=== PATIENT | male | born 1965 | race Caucasian/White ===

== ENCOUNTER → 2020-12-27 | Outpatient (CLI) | payer MEDICARE ==
--- NOTE | 2020-12-27 16:36 | RAD ---
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 COMPARISON: None available. FINDINGS: There is increased signal within the anterior cruciate ligament which may be seen with a gr nikolay 1 ligament sprain. Otherwise, no tear of this ligament is seen. The posterior cruciate ligament i s intact. The quadriceps and patellar tendons are intact. There is a small inferior articular surface tear of the anterior horn of the lateral meniscus seen on series 6 and image 24. On series 8 and alfredo ge 9, there is a small inferior articular surface tear of the inner one third of the body of the late ral meniscus. There is a horizontal cleavage tear of the anterior horn and body of the lateral menisc us with associated parameniscal cyst which measures 18 mm in greatest dimension. This is best seen on series 8 and image 12. The medial meniscus is intact. The medial collateral ligament is intact and n o meniscocapsular separation is seen. Paramagnetic susceptibility artifact is seen medially. This cou ld be related to previous surgery or trauma. The lateral collateral ligament complex and iliotibial b and and popliteus tendon are intact. No posterior lateral corner injury is seen. No bone marrow edema or marrow infiltrative process or fracture is seen. There is moderate chondromalacia of the weightbe aring portion of the articular cartilage of the medial femoral condyle. There is minimal degenerative spurring of the lateral tibiofemoral joint compartment. The patella is normally aligned. There is mi ld chondromalacia patellae of the medial and lateral patellar facets. No articular cartilage defect i s seen. There is mild degenerative spurring of patellofemoral joint compartment. The medial and later al retinacular ligaments are intact. Nondistended small Lew's cyst is seen. Small knee joint effusi on is seen. No loose body is evident. No muscle edema is seen. IMPRESSION: Tears of the lateral meniscus with associated parameniscal cyst as discussed above. 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 Grade 1 ligament sprain of the anterior cruciate ligament. The posterior cruciate ligament appears no rmal. Mild chondromalacia patellae. Electronically signed by: Russell Burciaga MD (12/27/2020 4:34 PM) [id number]
== END ==
LOC: MRI 08:27
PROVIDERS: ATTEND Family Medicine
DX: S83.511A Sprain of anterior cruciate ligament of right knee, initial encounter (principal); S83.281A Other tear of lateral meniscus, current injury, right knee, initial encounter; M23.8X1 Other internal derangements of right knee; X58.XXXA Exposure to other specified factors, initial encounter; Y93.89 Activity, other specified; Y92.89 Other specified places as the place of occurrence of the external cause; Y99.8 Other external cause status; M22.41 Chondromalacia patellae, right knee; M23.000 Cystic meniscus, unspecified lateral meniscus, right knee
CPT/HCPCS: 73721